=== PATIENT | male | born 1955 | race Caucasian/White ===

== ENCOUNTER 2021-11-16 06:09 | Day surgery (SDC) | payer BC ==
[~2021-11-16] VITALS: Ht 167.6 cm; Wt 62.6 kg
[2021-11-16] MEDS ORDERED: ZYLOPRIM 100MG100 MG PO (06:38)
[2021-11-16] MEDS ORDERED: ZEBETA 5MG5 MG PO (06:38)
[2021-11-16] MEDS ORDERED: PRAVACHOL 40MG40 MG PO (06:38)
[2021-11-16] MEDS ORDERED: OTEZLA PO (06:39)
[2021-11-16] MEDS ORDERED: ZETIA 10MG TAB10 MG PO (06:39)
[2021-11-16] MEDS ORDERED: NIACINAMIDE500 MG PO (06:40)
[2021-11-16] MEDS ORDERED: PROTONIX 40MG T40 MG PO (06:40)
[2021-11-16] MEDS ORDERED: PROBIOTIC ACID1 EAC3 PO (06:41)
[2021-11-16] MEDS ORDERED: MELATONIN5 M1 SL (06:41)
[2021-11-16] MEDS ORDERED: MULTI VITAMINS1 TAB PO (06:42)
[2021-11-16] MEDS ORDERED: GLUCOSAMINE & C1 TAB PO (06:43)
[2021-11-16] MEDS ORDERED: LINSEED OIL 1 ML1 ML (06:44)
[2021-11-16] MEDS ORDERED: CURCUMIN95% (06:44)
[2021-11-16] MEDS ORDERED: VITAMIND3 5000 PO (06:45)
[2021-11-16] MEDS ORDERED: PHARMASSURE ZIN50 MG PO (06:45)
[2021-11-16] MEDS ORDERED: SELENIUM200 MC5 (06:46)
[2021-11-16] MEDS ORDERED: CARDI-OMEGA1000 MG (06:46)
[2021-11-16] MEDS ORDERED: VITAMIN C500 MG PO (06:46)
[2021-11-16] MEDS ORDERED: VITAMIN B COMPL1 SGL PO (06:47)
[2021-11-16] MEDS ORDERED: THE MEDICINE S200 M2 PO (06:47)
[2021-11-16] MEDS ORDERED: ALA 100MG PO (06:48)
[2021-11-16] MEDS ORDERED: DHEA25 M3 PO (06:48)
[2021-11-16 07:40] VITALS: BP 114/66; PULSE 76; TEMP 97.6
--- NOTE | 2021-11-16 07:40 | NUR ---
The patient was brought back to [facility] from the endoscopy suite. The patient ambulated from the cart to the recliner in the room with the stand by assistance of two nurses and appeared to tolerate the activity well. Post procedure vital signs were started. The patient agrees to try some orange juice and chocolate pudding. Call light is within reach. at bedside. Denies any further needs.
[2021-11-16 07:55] VITALS: BP 134/46; PULSE 78
--- NOTE | 2021-11-16 07:55 | NUR ---
The patient appeared to tolerate the pudding and juice well and now wants to try some ice water. Vital signs remain stable.
[2021-11-16 08:10] VITALS: BP 135/72; PULSE 81
--- NOTE | 2021-11-16 08:10 | NUR ---
The patient appears to be tolerating the water well. He is waiting to speak with Dr. Davis prior to dishcarge.
--- NOTE | 2021-11-16 08:20 | NUR ---
The patient has spoke with Dr. Davis and verbalizes a desire to be discharged home. Discharge instructions were reviewed with the patient and his . They both verbalized understanding and have no questions for the nurse at this time. The patient' IV to his righ wrist was removed and a pressure dressing was applied to the site. The patient was instructed to get dressed and notify the staff when he is ready to be escorted out.
--- NOTE | 2021-11-16 08:30 | NUR ---
The patient was escorted out via wheelchair to a private vehicle by YANICK Alvarado. The patient's belongings and discharge paperwork were sent with him. The patient's is present to drive him home.
[2021-11-16 16:12] VITALS: BP 168/107; PULSE 76; TEMP 97.6
== END 2021-11-16 08:30 | disposition home or self-care (01) ==
LOC: SDCO 06:09
DX: K20.90 Esophagitis, unspecified without bleeding (principal); K57.30 Diverticulosis of large intestine without perforation or abscess without bleeding; Z87.891 Personal history of nicotine dependence
CPT/HCPCS: J0360; J2704; J7120